=== PATIENT | female | born 2000 | race Caucasian/White ===

== ENCOUNTER → 2021-08-25 09:03 | Outpatient (BNVA) | payer OTHER, SELFPAY | PROVIDERS: Visit Provider Nurse Practitioner Family | DX: Z20.822 Contact with and (suspected) exposure to COVID-19 (principal) | CPT/HCPCS: 87635 ==

== ENCOUNTER → 2022-01-09 10:17 | Outpatient (BNVA) | payer OTHER, SELFPAY | PROVIDERS: PCP Nurse Practitioner Family; Visit Provider Nurse Practitioner Family | DX: R10.12 Left upper quadrant pain (principal); R53.83 Other fatigue; E55.9 Vitamin D deficiency, unspecified; Z79.899 Other long term (current) drug therapy; Z13.6 Encounter for screening for cardiovascular disorders | CPT/HCPCS: 74018; 80053; 80061; 81003; 82150; 82306; 83036; 83690; 84439; 84443; 85025 ==

== ENCOUNTER → 2022-09-24 09:32 | Outpatient (BNVA) | payer OTHER, SELFPAY | PROVIDERS: PCP Nurse Practitioner; Visit Provider Nurse Practitioner | DX: N39.0 Urinary tract infection, site not specified (principal) | CPT/HCPCS: 81000; 87077; 87086; 87184 ==

== ENCOUNTER → 2023-05-30 13:24 | Outpatient (BNVA) | payer OTHER, SELFPAY | PROVIDERS: PCP Nurse Practitioner; Visit Provider Nurse Practitioner | DX: N91.2 Amenorrhea, unspecified (principal) | CPT/HCPCS: 81025 ==

== ENCOUNTER → 2024-10-15 16:25 | Outpatient (BNVA) | payer OTHER, SELFPAY | PROVIDERS: PCP Nurse Practitioner Family; Visit Provider Nurse Practitioner Family | DX: Z13.6 Encounter for screening for cardiovascular disorders (principal); K81.9 Cholecystitis, unspecified; Z79.899 Other long term (current) drug therapy; R10.9 Unspecified abdominal pain; R11.0 Nausea | CPT/HCPCS: 74018; 80053; 80061; 81003; 82150; 83036; 83690; 84443; 85025; 87077; 87086; 87184 ==

== ENCOUNTER 2024-10-19 12:17 | Outpatient (CLI) | payer MEDICAID, SELFPAY ==
--- NOTE | 2024-10-19 15:15 | US_ITS ---
WS: [id number] ULTRASOUND ABDOMEN CLINICAL INFORMATION: K81.9 - Cholecystitis, unspecified COMPARISON: None. FINDINGS: Liver Size: Normal. Craniocaudal length: 15.1 cm. Echogenicity: Normal. Surface nodularity: None. Mass (size and location): None. Bile ducts Intrahepatic ducts: Normal. Common bile duct diameter: 0.3 cm. Gallbladder Cholelithiasis Gallstones: Present Gallbladder sludge: None. Gallbladder wall thickening: None. Pericholecystic fluid: None. Sonographic Luque sign: Absent. Pancreas Not well visualized Spleen Splenomegaly: None. Craniocaudal length: 9.6 cm. Right kidney: Normal. Hydronephrosis: None. Size: 10.6 cm x 6.0 cm x 6.3 cm Left kidney: Normal. Hydronephrosis: None. Size: 10.5 cm x 6.7 cm x 6.0 cm. Abdominal aorta and IVC Visualized portions are normal. Ascites: None. US/US abdomen complete* [id number] IMPRESSION: 1. Cholelithiasis. No gallbladder wall thickening or pericholecystic fluid. 2. Normal common bile duct. 3. No hydronephrosis in either kidney. 4. No other acute findings.
== END 2024-10-19 12:18 | disposition home or self-care (01) ==
LOC: RAD 12:18
PROVIDERS: PCP Nurse Practitioner Family; Visit Provider Nurse Practitioner Family
DX: K81.9 Cholecystitis, unspecified (principal)
CPT/HCPCS: 76700